=== PATIENT | female | born 1985 | race Caucasian/White ===

== ENCOUNTER 2020-01-29 07:20 | Inpatient (IN) | payer OTHER ==
--- OUTSIDE RECORDS SUMMARY | 2020-01-29 07:38 | XMS ---
:1985 Author Organization [facility] Support Name Relationship Address Phone UE, UNEMPLOYED Unavailable Unavailable Unavailable UE Unavailable Unavailable Unavailable BREANA LO [address] [facility] [place] [address] Re-disclosure Warning The records that you are about to access may contain information from federally- assisted alcohol or drug abuse programs. If such information is present, then the following federally mandated warning applies: This information has been disclosed to you from records protected by federal confidentiality rules (42 CFR part 2). The federal rules prohibit you from making any further disclosure of this information unless further disclosure is expressly permitted by the written consent of the person to whom it pertains or as otherwise permitted by 42 CFR part 2. A general authorization for the release of medical or other information is NOT sufficient for this purpose. The Federal rules restrict any use of the information to criminally investigate or prosecute any alcohol or drug abuse patient.The records that you are about to access may contain highly sensitive health information, the redisclosure of which is protected by Article 27-F of the [facility] Public Health law. If you continue you may haveaccess to information: Regarding HIV / AIDS; Provided by facilities licensed or operated by the [facility] Office of Mental Health; or Provided by the [facility] Office for People With Developmental Disabilities. If such information is present, then the following [facility] mandated warning applies: This information has been disclosed to you from confidential records which are protected by state law. State law prohibits you from making any further disclosure of this information without the specific written consent of the person to whom it pertains, or as otherwise permitted by law. Any unauthorized further disclosure in violation of state law may result in a fine or fdc sentence or both. A general authorization for the release of medical or other information is NOT sufficient authorization for further disclosure. Insurance Providers Payer name Policy type Policy ID Covered Covered libertarian's Policy P linsey / Coverage libertarian ID relationship to [facility] type ramirez HIP MEDICAID [id number] SP [id number] MEDICAID [id number] SP [id number] HIP MEDICAID [id number]
[2020-01-29 08:45] LABS: BASO % 0.4 % (0-2.0); EOS % 0.9 % (0-4.5); HEMATOCRIT 40.2 % (32.4-45.2); HEMOGLOBIN 13.7 GM/dL (10.7-15.3); LYMPH % 18.7 % (8-40); MCHC 34.2 g/dl (32.0-36.0); MEAN CELL VOLUME 93.6 fl (80-96); MEAN PLT VOLUME 8.9 fl (7.5-11.1); MONO % 9.5 % (3.8-10.2); NEUT % 70.5 % (42.8-82.8); PLATELET COUNT 170 K/MM3 (134-434); RDW 13.6 % (11.6-15.6); WHITE BLOOD COUNT 9.3 K/mm3 (4.0-10.0)
[2020-01-29 08:52] LABS: INR 0.97 (0.83-1.09); PROTHROMBIN TIME (PATIENT) 11.4 SEC (9.7-13.0)
[2020-01-29 08:55] LABS: ACTIVATED PTT 26.8 SECONDS (25.2-36.5)
[2020-01-29 09:23] VITALS: BMI 30.2
[2020-01-29 09:25] LABS: BLOOD UREA NITROGEN 8.6 mg/dL (7-18); CALCIUM 9.1 mg/dL (8.5-10.1); CREATININE 0.4 mg/dL (0.55-1.3)
--- NOTE | 2020-01-29 09:26 | HP ---
Past Medical History - Primary Care Physician PCP:: Efren Morocho E - Admission Chief Complaint: Postdates. For induction. History of Present Illness: Uneventful . First baby. GBS neg. History Source: Patient, Medical Record, Caregiver Limitations to Obtaining History: No Limitations - Past Medical History INFORMATION SECURITY SPECIALIST: No: Alzheimer's, CVA, Dementia, Migraine, Multiple Sclerosis, Peripheral Neuropathy, Parkinson's, Seizure, Syncope, TIA, Vertigo, Other Cardiovascular: No: AFIB, Aneurysm, Aortic Insufficiency, Aortic Stenosis, CAD, CHF, Deep Vein Thrombosis, HTN, Hyperlipdemia, HI, Mitral Insufficiency, Mitral Stenosis, Murmur, Pulmonary Hypertension, Other Pulmonary: No: Asthma, Bronchitis, Cancer, COPD, O2 Dependent, Pneumonia, Previously Intubated, Pulmonary Embolus, Pulmonary Fibrosis, Sleep Apnea, Other Gastrointestinal: No: Ascites, Cancer, Constipation, Crohn's Disease, Diverticulitis, Diverticulosis, Esophageal Varices, Gastritis, GERD, GI Bleed, Hemorrhoids, Hiatal Hernia, Inflamatory Bowel Disease, Irritable Bowel Disease, Pancreatitis, Peptic Ulcer Disease, Ulcerative Colitis, Other Hepatobiliary: No: Cirrhosis, Cholelithiasis, Cholecystitis, Choledocholithiasis, Hepatitis A, Hepatitis B, Hepatitis C, Other Renal/: No: Renal Failure, Renal Inusuff, BPH, Cancer, Hematuria, Hemodialysis, Neurogenic Bladder, Renal Calculi, UTI, Other Reproductive: No: Ectopic , Endometriosis, Fibroids, PID, Polycystic Ovary Syndrome, Postmenopausal, Other ... Weeks Gestation by Dates: 40.3 ...EDC by Dates: 01/26/20 Heme/Onc: No: Anemia, B12 Deficiency, Bleeding Disorder, Cancer, Current Chemotherapy, Current Radiation Therapy, Hemochromatosis, Hypercoaguable State, Myeloproliferative Synd, Sickle Cell Disease, Sickle Cell Trait, Thrombocytopenia, Other Infectious Disease: No: AIDS, C-Diff, Herpes Zoster, HIV, MRSA, STD's, Tuberculosis, VREF, Other Psych: No: Addictions, Anxiety, Bipolar, Depression, Panic, Psychosis, Schizophrenia, Other Musculoskeletal: No: Bursitis, Chronic low back pain, Hemiparesis, Hemiplegia, Osteoarthritis, Paraplegia, Other Rheumatology: No: Fibromyalgia, Gout, Lupus, Rheumatoid Arthritis, Sarcoidosis, Vasculitis, Other Endocrine: No: [place]'s Disease, [place]'s Disease, Diabetes Insipidus, Diabetes Mellitus, Hyperparathyroidism, Hyperthyroidism, Hypothyroidism, Osteopenia, SIADH, Other - Past Surgical History Past Surgical History: No: None, AAA Repair, AICD, Amputation, Appendectomy, Arthrosocopy, AV Fistula/Graft, Bariatric Surgery, Breast Biopsy, Bypass, CABG, Carotid Endarterectomy, Cataract Removal, Cholecystectomy, Colectomy, Colonoscopy, Colostomy, Craniotomy, , Cystectomy, Hernia Repair, Hysterectomy, Ileal Conduit, Ileosotomy, Joint Replacement, Kidney Transplant, Laminectomy, Liver Transplant, Mastectomy, Nephrectomy, Oopherectomy, Orchiectomy, Permanent Pacemaker, Prostatectomy, Splenectomy, Stent, Thoracotomy, TURP, Tonsillectomy, Tubal Ligation, Upper Endoscopy, Valve Re placement, Vasectomy, Vein Stripping/Ligation Hx Myomectomy: No Hx Transabdominal Cerclage: No Home Medications - Allergies Allergies/Adverse Reactions: Allergies Allergy/AdvReac Type Severity Reaction Status Date / Time No Known Allergies Allergy Verified 01/29/20 09:10 - Home Medications Home Medications: Ambulatory Orders Pnv No.95/Ferrous Fum/Folic AC [ Caplet] 1 each PO DAILY 01/29/20 Family Medical History Family History: Unremarkable Review of Systems - Review of Systems Constitutional: reports: No Symptoms Eyes: reports: No Symptoms HENT: reports: No Symptoms Neck: reports: No Symptoms Cardiovascular: reports: No Symptoms Respiratory: reports: No Symptoms Gastrointestinal: reports: No Symptoms Genitourinary: reports: No Symptoms Breasts: reports: No Symptoms Reported Musculoskeletal: reports: No Symptoms Integumentary: reports: No Symptoms Neurological: reports: No Symptoms Endocrine: reports: No Symptoms Hematology/Lymphatic: reports: No Symptoms Psychiatric: reports: No Symptoms Physical Exam - Maternity Constitutional: Yes: Well Nourished, No Distress, Calm Eyes: Yes: WNL, Conjunctiva Clear, EOM Intact HENT: Yes: WNL, Atraumatic, Normocephalic Neck: Yes: WNL, Supple, Trachea Midline Cardiovascular: Yes: WNL, Regular Rate and Rhythm Breast(s): Yes: WNL - Abdominal Exam/OB Fundal Height: 42 Number of Fetuses: Single Presentation: Vertex Contractions: No Monitor Mode: External Heart Rate (range): 140 Heart Rate Location: [facility] Category: I Accelerations: Uniform Decelerations: None - Vaginal Exam/OB Dilatation (cm): 2 Effacement (%): 50 Amniotic Membrane Status: Intact Presentation: Vertex/Position Station: -2 - Physical Exam Musculoskeletal: Yes: WNL Extremities: Yes: WNL Integumentary: Yes: WNL ...Motor Strength: WNL Psychiatric: Yes: WNL - Labs Lab Results: CBC, BMP 01/29/20 08:10 Problem List - Problems (1) Post-dates Code(s): O48.0 - POST-TERM Assessment/Plan For induction. All fully discussed. Pt. understands and consents.
[2020-01-29] MEDS ORDERED: OXYTOCIN 30 UNITS in 0.9% NS 30 UNIT/500 ML INFUS.BAG IVPB SCH (09:45)
[2020-01-29] MEDS ORDERED: DEXTROSE 5%-LACTATED RINGERS 1,000 ML IV SCH (09:45)
--- NOTE | 2020-01-29 10:58 | PN ---
Progress Note, Labor Vaginal Exam #1 Labor Exam Date: 01/29/20 Labor Exam Time: 10:35 Heart Rate (range): 140, cat 1 Dilatation: 2 Effacement (%): 50 Amniotic Membrane Status: Intact Presentation: Vertex/Position Station: -1 (AROM, sm. amnt. of AF (?).)
--- NOTE | 2020-01-29 13:57 | PN ---
Progress Note, Labor Vaginal Exam #2 Labor Exam Date: 01/29/20 Labor Exam Time: 13:55 Heart Rate (range): 145, cat 1 Dilatation: 4 Effacement (%): 90 Presentation: Vertex/Position Station: -1 (Epidural)
[2020-01-29] MEDS ORDERED: FENTANYL/BUPIVACAINE/NS/PF - PCEA - 50 ML DISP.SYRIN EP ONE (13:58)
[2020-01-29] MEDS ORDERED: PCA PUMP NR ONE (13:58)
[2020-01-29] MEDS ORDERED: BUPIVACAINE HCL/PF 0.25% (2.5MG/ML) 10 ML VIAL ONE (14:12)
[2020-01-29] MEDS ORDERED: FENTANYL/BUPIVACAINE/NS/PF - PCEA - 50 ML DISP.SYRIN EP SCH (14:30)
[2020-01-29] MEDS ORDERED: NALOXONE HCL 0.4 MG/ML VIAL IVPUSH PRN (14:30)
[2020-01-29] MEDS ORDERED: OXYTOCIN 20 UNITS in 0.9% NS 20 UNIT/1,000 ML INFUS.BAG IV ONE (16:25)
[2020-01-29] MEDS ORDERED: LIDOCAINE HCL 1% PRESERVATIVE FREE - 30ML VIAL ONE (16:25)
--- NOTE | 2020-01-29 18:02 | PN ---
Progress Note, Labor Vaginal Exam #3 Labor Exam Time: 19:00 Dilatation: 10 Presentation: Vertex/Position Station: +2
[2020-01-29] MEDS ORDERED: BENZOCAINE 28 GM HEMORRHOIDAL OINTMENT TP PRN (18:04)
[2020-01-29] MEDS ORDERED: METHYLERGONOVINE MALEATE 0.2 MG/1 ML AMP IM PRN (18:04)
[2020-01-29] MEDS ORDERED: BISACODYL 10 MG SUPP.RECT RC PRN (18:04)
[2020-01-29] MEDS ORDERED: WITCH HAZEL 50% (TUCKS) 40 PAD/JAR PAD TP PRN (18:04)
[2020-01-29] MEDS ORDERED: BENZOCAINE 20% 57 GM BOTTLE TP PRN (18:04)
--- NOTE | 2020-01-29 18:04 | PN ---
Delivery - Delivery Vaginal Delivery: No Problems, Spontaneous Type of Anesthesia: Local, Epidural Episiotomy/Laceration: Midline EBL (cc): 250 Delivery, Single - Stages of Labor Date of Delivery: 01/29/20 Time of Delivery: 17:35 Time Placenta Delivered: 17:50 Placenta: Yes: Spontaneous, Normal Configuration - Condition of Infant Web Pressman/Bakery Demonstrator Present: No Infant Gender: Female Position: Right, OA - 1 Minute Total Score: 8 5 Minutes Total Score: 8 - Wideman Feeding Plan Initial Plan: Exclusive throughout hospitalization Remarks - Remarks Remarks: NVSD> Delayed clamping; divided by . Pt. is vey happy.
[2020-01-29] MEDS ORDERED: OXYTOCIN 20 UNITS in 0.9% NS 1000 ML INFUS.BAG IV ONE (18:05)
[2020-01-29] MEDS ORDERED: IBUPROFEN 600 MG TABLET (FP) PO ONE (18:19)
[2020-01-29] MEDS: IBUPROFEN 600 MG TABLET (FP) PO PRN (18:30)
--- NOTE | 2020-01-30 06:25 | PN ---
Post Progress Note - Subjective Subjective: Doing well. Happy. Type of Delivery: Vital Signs: Vital Signs Temperature 98.2 F 01/30/20 02:00 Pulse Rate 72 01/30/20 02:00 Respiratory Rate 20 01/29/20 22:00 Blood Pressure 101/52 L 01/30/20 02:00 O2 Sat by Pulse Oximetry (%) 96 01/30/20 02:00 Breast Exam: Yes: Soft Uterus: Yes: Fundus Firm, Non-tender Abdomen/GI: Yes: Abdomen soft, Passing flatus, Tolerating PO Lochia: Yes: Rubra Lochia, amount: Small Extremities: Yes: Calves non-tender Perineum: Yes: Episiotomy (Healing) Activity: Ambulating - Labs Labs: CBC WBC 9.3 K/mm3 (4.0-10.0) 01/29/20 08:10 RBC 4.30 M/mm3 (3.60-5.2) 01/29/20 08:10 Hgb 13.7 GM/dL (10.7-15.3) 01/29/20 08:10 Hct 40.2 % (32.4-45.2) 01/29/20 08:10 MCV 93.6 fl (80-96) 01/29/20 08:10 MCH 32.0 pg (25.7-33.7) D 01/29/20 08:10 MCHC 34.2 g/dl (32.0-36.0) 01/29/20 08:10 RDW 13.6 % (11.6-15.6) D 01/29/20 08:10 Plt Count 170 K/MM3 (134-434) 01/29/20 08:10 MPV 8.9 fl (7.5-11.1) 01/29/20 08:10 Absolute Neuts (auto) 6.6 K/mm3 (1.5-8.0) 01/29/20 08:10 Neutrophils % 70.5 % (42.8-82.8) 01/29/20 08:10 Lymphocytes % 18.7 % (8-40) 01/29/20 08:10 Monocytes % 9.5 % (3.8-10.2) 01/29/20 08:10 Eosinophils % 0.9 % (0-4.5) 01/29/20 08:10 Basophils % 0.4 % (0-2.0) 01/29/20 08:10 Nucleated RBC % 0 % (0-0) 01/29/20 08:10 Problem List - Problems (1) Post-dates Code(s): O48.0 - POST-TERM Assessment/Plan Excellent recovery. Exam WNL. Happy!
[2020-01-30] MEDS: ACETAMINOPHEN 325 MG TABLET (FP) PO PRN ×2 (08:04→19:16)
[2020-01-30] MEDS: IBUPROFEN 600 MG TABLET (FP) PO PRN ×2 (08:05→19:16)
[2020-01-30 08:10] LABS: BASO % 0.3 % (0-2.0); EOS % 0.7 % (0-4.5); HEMATOCRIT 34.9 % (32.4-45.2); HEMOGLOBIN 11.5 GM/dL (10.7-15.3); LYMPH % 14.2 % (8-40); MCH 30.6 pg (25.7-33.7); MEAN CELL VOLUME 92.7 fl (80-96); MEAN PLT VOLUME 8.7 fl (7.5-11.1); MONO % 10.5 % (3.8-10.2); NEUT % 74.3 % (42.8-82.8); PLATELET COUNT 152 K/MM3 (134-434); RBC 3.76 M/mm3 (3.60-5.2); RDW 13.6 % (11.6-15.6); WHITE BLOOD COUNT 12.8 K/mm3 (4.0-10.0)
[2020-01-30] MEDS ORDERED: SENNOSIDES/DOCUSATE COMBO (SENNA PLUS) TABLET (UD) PO PRN (22:00)
[2020-01-31] MEDS: IBUPROFEN 600 MG TABLET (FP) PO PRN (09:09)
[2020-01-31] MEDS: ACETAMINOPHEN 325 MG TABLET (FP) PO PRN (09:09)
[2020-01-31 09:55] VITALS: BP 127/86; PULSE 98; TEMP 99
--- NOTE | 2020-01-31 11:14 | PN ---
Progress Note (short form) - Note Progress Note: Doing very ell. PE OK. Instructed. Discharge Problem List - Problems (1) Post-dates Code(s): O48.0 - POST-TERM
--- NOTE | 2020-01-31 11:16 | DS ---
Physical Exam-MANAGED SERVICES SALES CONSULTANT Vital Signs: Vital Signs Temperature 99.0 F 01/31/20 09:54 Pulse Rate 98 H 01/31/20 09:54 Respiratory Rate 17 01/31/20 09:54 Blood Pressure 127/86 01/31/20 09:54 O2 Sat by Pulse Oximetry (%) 97 01/30/20 06:41 Constitutional: Yes: Well Nourished, No Distress, Calm Eyes: Yes: WNL, Conjunctiva Clear, EOM Intact HENT: Yes: WNL, Atraumatic, Normocephalic Neck: Yes: WNL, Supple, Trachea Midline Cardiovascular: Yes: WNL, Regular Rate and Rhythm Respiratory: Yes: WNL, Regular, CTA Bilaterally Gastrointestinal: Yes: WNL ...Rectal Exam: Yes: WNL Renal/: Yes: WNL Pelvis: Yes: WNL External Genitalia: Yes: Normal Breast(s): Yes: WNL Musculoskeletal: Yes: WNL Extremities: Yes: WNL Integumentary: Yes: WNL Neurological: Yes: WNL, Alert, Oriented ...Motor Strength: WNL Psychiatric: Yes: WNL, Alert, Oriented Labs: CBC, BMP 01/30/20 07:16 01/29/20 08:10 Delivery - Delivery Vaginal Delivery: No Problems, Spontaneous Type of Anesthesia: Local, Epidural Episiotomy/Laceration: Midline EBL (cc): 250 Delivery, Single - Stages of Labor Date 1st Stage Initiatied: 01/29/20 Time 1st Stage Initiated: 12:30 Date 2nd Stage Initiated: 01/29/20 Time 2nd Stage Initiated: 16:45 Date of Delivery: 01/29/20 Time of Delivery: 17:35 Time Placenta Delivered: 17:50 Placenta: Yes: Spontaneous, Normal Configuration - Condition of Infant Automobile Accessories Installer/Holder Pile Driving Present: No Gender: Female Weight: 7 lb 3 oz Position: Right, OA Total Hours ROM (Hrs/Mins): 7h5m - 1 Minute Total Score: 8 5 Minutes Total Score: 8 - Feeding Plan Initial Plan: Exclusive throughout hospitalization Discharge Summary Problems reviewed: Yes Reason For Visit: ADMIT FOR LABOR Current Active Problems Post-dates (Acute) Procedures: Principal: Hospital Course: uneventful Condition: Good - Instructions Diet, Activity, Other Instructions: Physical activity Resume your normal everyday activity as tolerated no heavy lifting or exercise until seen by your surgeon. You may walk unlimited jeaneth of and climb stairs. You may resume driving the car when you feel safe and comfortable behind the wheel. No sexual activity as instructed. Diet There are no dietary restrictions. Eat healthy, high-fiber foods. Drink 6 to 8 glasses of liquid each day. This will assist in keeping your bowels are regular. Pain management You may take Tylenol or acetaminophen or Ibuprofen (for example, Motrin, Advil etc.) from my pain prescription medication is ordered should be taken as prescribed for moderate to severe pain. Call MD for any of the following: Severe pain not relieved by medication Fever of 101 or higher Excessive bleeding or drainage on dressing Inability to urinate [phone] - Home Medications Comprehensive Discharge Medication List: Ambulatory Orders Pnv No.95/Ferrous Fum/Folic AC [ Caplet] 1 each PO DAILY 01/29/20
== END 2020-01-31 12:35 | disposition home or self-care (01) | DRG 560 ==
LOC: JLDR 07:20 → J3W 21:05
PROVIDERS: ADMIT Specialist; ATTEND Specialist
PROC: 10E0XZZ Delivery of Products of Conception, External Approach (ICD-10-PCS; principal; 2020-01-29)
PROC: 0W8NXZZ Division of Female Perineum, External Approach (ICD-10-PCS; 2020-01-29)
DX: O48.0 Post-term pregnancy (principal); Z3A.40 40 weeks gestation of pregnancy; Z37.0 Single live birth
CPT/HCPCS: 36415; 59409; 80048; 85025; 85610; 85730; 86780; 86850; 86900; 86901

== ENCOUNTER 2021-04-23 04:38 | Day surgery (SDC) | payer OTHER ==
[2021-04-22 14:36] VITALS: BMI 27.8
[2021-04-23] MEDS ORDERED: DEXAMETHASONE SOD PHOSPHATE 4 MG/1 ML VIAL ONE (11:44)
[2021-04-23] MEDS ORDERED: OXYTOCIN 10 UNITS/ML VIAL ONE (11:44)
[2021-04-23] MEDS ORDERED: PROPOFOL 20 ML ONE (11:44)
[2021-04-23] MEDS ORDERED: KETOROLAC TROMETHAMINE 30 MG/1 ML VIAL ONE (11:44)
[2021-04-23] MEDS ORDERED: MIDAZOLAM HCL 2 MG/2 ML SINGLE DOSE VIAL ONE (11:44)
[2021-04-23] MEDS ORDERED: ACETAMINOPHEN 325 MG TABLET (FP) PO PRN (11:49)
[2021-04-23] MEDS ORDERED: IBUPROFEN 400 MG TABLET (FP) PO PRN (11:49)
[2021-04-23] MEDS ORDERED: ONDANSETRON 4 MG/2 ML VIAL IVPUSH PRN (11:56)
[2021-04-23] MEDS ORDERED: oxyCODONE HCL 5 MG TABLET PO PRN (11:56)
[2021-04-23] MEDS ORDERED: LACTATED RINGERS SOLUTION 1,000 ML IV SCH (12:00)
[2021-04-23 14:04] VITALS: BP 109/69; PULSE 71; TEMP 97.8
== END 2021-04-23 14:05 | disposition home or self-care (01) ==
LOC: JASU-SURG 04:38
PROVIDERS: ATTEND Specialist
PROC: 10D17ZZ Extraction of Products of Conception, Retained, Via Natural or Artificial Opening (ICD-10-PCS; principal; 2021-04-23 14:00)
DX: O02.1 Missed abortion (principal); Z3A.01 Less than 8 weeks gestation of pregnancy
CPT/HCPCS: 88305-TC; 94760